=== PATIENT | female | born 1995 | race Two or more races ===

== ENCOUNTER 2021-07-28 18:57 | Emergency (ER) | payer OTHER ==
[~2021-07-28 18:57] MED LIST: MACROBID 100 M100 MG PO
[2021-07-28] MEDS ORDERED: LODINE CAP 300300 MG PO (20:24)
[2021-07-28] MEDS ORDERED: PENVEE K 500 M500 MG PO (20:24)
== END 2021-07-28 20:43 | disposition home or self-care (01) ==
LOC: ER1 18:57
DX: K08.89 Other specified disorders of teeth and supporting structures (principal); F17.210 Nicotine dependence, cigarettes, uncomplicated
CPT/HCPCS: 96372; 99282; J1885